=== PATIENT | female | born 1960 | race Two or more races ===

== ENCOUNTER 2023-09-11 11:49 | Emergency (ER) | payer OTHER ==
[~2023-09-11] VITALS: Ht 162.6 cm; Wt 77.1 kg
[~2023-09-11 11:49] MED LIST: CIPRO500 MG PO; DIOVAN40 MG; DIOVAN40 MG PO; GABAPENTIN100 MG PO; NEURONTIN600 M1 PO; PYRIDIUM200 MG PO; SKELAXIN800 MG PO
[2023-09-11] MEDS ORDERED: COZAAR50 MG (12:07)
[2023-09-11] MEDS ORDERED: KETOROLAC TROMETHAMINE 30 MG VIAL IV ONE (15:00)
[2023-09-11] MEDS ORDERED: DICYCLOMINE HCL 20 MG TABLET PO ONE (15:00)
[2023-09-11 15:37] LABS: HEMATOCRIT 41.2 % (36.0-45.00); MEAN CELL VOLUME 92.4 fL (80.00-100.00); MEAN CORPUSCULAR HEMOGLOBIN 31.5 pg (27.00-32.0); PLATELET COUNT 255 K/uL (150-450); RED BLOOD COUNT 4.45 M/uL (4.00-6.00); RED CELL DISTRIBUTION WIDTH 14.4 % (11.5-14.5)
[2023-09-11 16:02] LABS: URINE APPEARANCE Clear; URINE BILIRRUBIN Negative (NEGATIVE); URINE BLOOD Negative; URINE COLOR Yellow; URINE GLUCOSE Negative (NEGATIVE); URINE LEUKOCYTE Negative; URINE NITRATE Negative; URINE PROTEIN Negative (NEGATIVE); URINE UROBILINOGEN 0.2 E.U./dl
[2023-09-11 16:05] LABS: URINE BACTERIA 28.9 uL (0.0-1933); URINE RBC 17.9 uL (0.0-20.8); URINE WBC 1.9 uL (0.0-23.2)
[2023-09-11 16:13] LABS: ALBUMIN 4.2 gm/dL (3.4-5.0); BILIRUBIN TOTAL 0.73 mg/dL (0.3-1.2); CALCIUM 10.5 mg/dL (8.5-10.1); CREATININE SERUM 0.84 mg/dL (0.55-1.02); GFR 68.48; GLOBULINA 4.5 G/DL (2.4-3.5); POTASSIUM 3.85 mEq/L (3.5-5.1); TOTAL PROTEIN 8.7 gm/dL (6.4-8.2)
[2023-09-11] MEDS ORDERED: FAMOTIDINE/PF 20 MG in 0.9 % SODIUM CHLORIDE 8 ML IV PUSH STA (17:33)
[2023-09-11] MEDS ORDERED: PROBIOTIC1 EAC2 PO (17:41)
[2023-09-11] MEDS ORDERED: LEVSIN/SL0.125 MG SL (17:41)
[2023-09-11] MEDS ORDERED: OMEPRAZOLE40 MG PO (17:41)
[2023-09-11] MEDS ORDERED: CIPRO500 MG PO (17:41)
[2023-09-11] MEDS ORDERED: METRONIDAZOLE500 MG PO (17:41)
[2023-09-11] MEDS ORDERED: METRONIDAZOLE/SODIUM CHLORIDE 500 MG/100 ML PIGGYBACK IV ONE (17:45)
== END 2023-09-11 19:38 | disposition home or self-care (01) ==
LOC: ER 11:50
PROVIDERS: Emergency Medicine
DX: K57.92 Diverticulitis of intestine, part unspecified, without perforation or abscess without bleeding (principal); R10.9 Unspecified abdominal pain; I10 Essential (primary) hypertension

== ENCOUNTER 2024-03-30 11:09 | Outpatient (CLI) | payer OTHER ==
[~2024-03-30 11:09] MED LIST changes: +COZAAR50 MG; +LEVSIN/SL0.125 MG SL; +METRONIDAZOLE500 MG PO; +OMEPRAZOLE40 MG PO; +PROBIOTIC1 EAC2 PO
== END 2024-03-30 11:17 | disposition home or self-care (01) ==
LOC: SONOGRAMA 11:09
PROVIDERS: ATTEND Obstetrics & Gynecology
DX: R10.2 Pelvic and perineal pain (principal)

== ENCOUNTER 2024-10-04 18:57 | Emergency (ER) | payer OTHER ==
[~2024-10-04] VITALS: Ht 162.6 cm; Wt 78.5 kg
[2024-10-04] MEDS ORDERED: ROSUVASTATIN CA10 MG (20:02)
[2024-10-04] MEDS ORDERED: FAMOTIDINE/PF 20 MG in 0.9 % SODIUM CHLORIDE 8 ML IV PUSH STA (20:35)
[2024-10-04] MEDS ORDERED: FAMOTIDINE/PF 20 MG/2 ML VIAL ONE (20:39)
[2024-10-04 20:56] LABS: HEMATOCRIT 38.4 % (36.0-45.00); HEMOGLOBIN 12.8 g/dL (12.0-15.00); MEAN CELL VOLUME 92.3 fL (80.00-100.00); MEAN CORPUSCULAR HEMOGLOBIN 30.7 pg (27.00-32.0); MEAN CORPUSCULAR HGB CONC 33.2 g/dl (32.0-36.0); PLATELET COUNT 271 K/uL (150-450); RED BLOOD COUNT 4.16 M/uL (4.00-6.00); RED CELL DISTRIBUTION WIDTH 14.2 % (11.5-14.5)
[2024-10-04 21:30] LABS: ALBUMIN 3.9 gm/dL (3.4-5.0); BILIRUBIN TOTAL 0.55 mg/dL (0.3-1.2); CALCIUM 9.1 mg/dL (8.5-10.1); CREATININE SERUM 0.68 mg/dL (0.55-1.02); GFR 87.11; GLOBULINA 3.6 G/DL (2.4-3.5); POTASSIUM 4.37 mEq/L (3.5-5.1); TOTAL PROTEIN 7.5 gm/dL (6.4-8.2)
[2024-10-04] MEDS ORDERED: PEPCID AC20 MG PO (21:54)
== END 2024-10-04 22:20 | disposition home or self-care (01) ==
LOC: ER 18:59
PROVIDERS: General Practice
DX: R07.89 Other chest pain (principal)

== ENCOUNTER 2025-02-18 08:36 | Outpatient (CLI) | payer OTHER ==
[~2025-02-18 08:36] MED LIST changes: +PEPCID AC20 MG PO; +ROSUVASTATIN CA10 MG
== END 2025-02-18 08:37 | disposition home or self-care (01) ==
LOC: TOM 08:36
PROVIDERS: ATTEND Specialist
DX: C25.9 Malignant neoplasm of pancreas, unspecified (principal)